=== PATIENT | male | born 1970 | race Caucasian/White ===

== ENCOUNTER 2021-11-26 12:06 | Day surgery (SDC) | payer OTHER, SELFPAY ==
[2021-09-19 09:16] VITALS: BMI 25.4
[2021-11-12 14:18] VITALS: BMI 24.5
[2021-11-26 12:25] VITALS: BP 110/79; PULSE 60; RESP 20; TEMP 36.8; O2SAT 100
[2021-11-26] MEDS: LACTATED RINGERS 1,000 ML 150 ML IV CONT (13:28)
--- NOTE | 2021-11-26 14:19 | P.PNAN_ITS ---
Anes - Initial Pre Proc Eval Procedure: Operation Date: 11/26/21 13:30 Proposed Procedures p Screening Colonoscopy - Guerrero Jesus MD Date/Time: 11/26/21 14:19 Surgeon: Guerrero Jesus MD Pre Op Diagnosis: Neoplasm Screening Patient Data Age: 51 Gender: M Height: 1.83 m Weight: 77.4 kg Last Vital Signs Temp 36.8 C 11/26/21 12:25 Pulse 60 11/26/21 12:25 Resp 20 11/26/21 12:25 BP 110/79 11/26/21 12:25 Pulse Ox 100 11/26/21 12:25 O2 Del Method Room Air 11/26/21 12:25 Allergies Allergy/AdvReac Type Severity Reaction Status Date / Time No Known Allergies Allergy Verified 11/26/21 12:28 Home Medications Medication Instructions Recorded Confirmed Type loratadine 10 mg tablet (Allergy 10 mg PO DAILY 08/05/21 11/26/21 History Relief (loratadine)) pseudoephedrine HCl 30 mg tablet 30 mg PO Q4-6H PRN allergies 08/05/21 11/26/21 History (Sudafed) sodium,potassium,mag sulfates 17.5 See Rx Instructions PO .COMPLEX 09/19/21 11/26/21 Rx gram-3.13 gram-1.6 gram oral soln #354 mL (Suprep Bowel Prep Kit) Patient hx anesthesia problems: none Family hx anesthesia problems: none Results Review: All pre-operative results and documents have been reviewed as part of the pre- operative evaluation. [facility], [facility] Past Medical History Medical History (Updated 11/26/21 @ 14:19 by Chase Velasquez MD) Basal cell carcinoma Surgical History Surgical History (Updated 11/26/21 @ 14:19 by Chase Velasquez MD) H/O basal cell carcinoma excision Family History Family History Father Parkinson disease Social History Social History Smoking status: Never smoker Second hand tobacco smoke exposure: No Alcohol intake: never Substance use: never Substance use type: does not use Living arrangements: with family Gender identity (if verbalized by the patient): Male Sexual Orientation (if Verbalized by the Patient): Straight or Heterosexual Spiritual care concerns: No Anes - Eval Final PreProcedure Day of Procedure 11/26/21 14:19 Patient weight: normal Heart: regular rate and rhythm Lungs: clear to auscultation Airway: Mallampati scale class II Neurological: alert and oriented Last oral intake: >/= 8 hours ASA classification: I Emergent: no Anesthetic plan: proceed Anesthesia type and monitoring: general GIVS and standard monitoring Results Review: All pre-operative results and documents have been reviewed as part of the pre- operative evaluation. Informed Consent: The patient's anesthetic plan and its attendant risks and benefits were discussed with the patient/family/POA. Questions were solicited and answers provided to the satisfaction of the patient/family/POA.
--- NOTE | 2021-11-26 14:32 | PM.HPGS ---
History of Present Illness History of Present Illness Consent: Risks, benefits, and alternatives have been discussed and questions answered. Patient agrees to proceed with procedure. Chief complaint: Neoplasm Screening Narrative: Quincy Shell is a 51 year old male Presents for screening colonoscopy. Patient's current weight appetite and bowel movements are normal. Patient denies abdominal pain. He has had no bleeding. Family history is noncontributory. Patient presents today for screening colonoscopy. Review of Systems Review of Systems: Review of systems noncontributory. [facility] Past Medical History Medical History (Updated 11/26/21 @ 14:34 by Guerrero Jesus MD) Basal cell carcinoma Surgical History Surgical History (Updated 11/26/21 @ 14:19 by Chase Velasquez MD) H/O basal cell carcinoma excision Family History Family History Father Parkinson disease Social History Social History Smoking status: Never smoker Second hand tobacco smoke exposure: No Alcohol intake: never Substance use: never Substance use type: does not use Living arrangements: with family Gender identity (if verbalized by the patient): Male Sexual Orientation (if Verbalized by the Patient): Straight or Heterosexual Spiritual care concerns: No Meds Home Medications and Allergies Home Medications Medication Instructions Recorded Confirmed Type loratadine 10 mg tablet (Allergy 10 mg PO DAILY 08/05/21 11/26/21 History Relief (loratadine)) pseudoephedrine HCl 30 mg tablet 30 mg PO Q4-6H PRN allergies 08/05/21 11/26/21 History (Sudafed) sodium,potassium,mag sulfates 17.5 See Rx Instructions PO .COMPLEX 09/19/21 11/26/21 Rx gram-3.13 gram-1.6 gram oral soln #354 mL (Suprep Bowel Prep Kit) Allergies Allergy/AdvReac Type Severity Reaction Status Date / Time No Known Allergies Allergy Verified 11/26/21 12:28 Vital Signs Vital Signs - 24 hr 11/26/21 12:25 Temperature 98.2 F Pulse Rate 60 Respiratory Rate 20 Blood Pressure 110/79 Pulse Oximetry 100 Oxygen Delivery Room Air Exam Narrative: Physical exam reveals patient to be alert. Vital signs stable. HEENT exam is unremarkable. Patient is anicteric. Lungs are clear to auscultation and percussion. Heart is without murmur or extra sounds. Abdominal exam bowel sounds are present soft nontender with no hepatosplenomegaly. Did in digital external rectal exam is normal Assessment and Plan Assessment and plan (1) Encounter for screening colonoscopy: Code(s): Z12.11 - Encounter for screening for malignant neoplasm of colon Status: Acute Assessment and Plan: patient presents for screening colonoscopy. Appears to be at average risk for colon polyps. Further recommendations will be given after endoscopy.
[2021-11-26 15:05] VITALS: BP 106/75; PULSE 66; RESP 14; O2SAT 100
[2021-11-26 15:16] VITALS: BP 111/73; PULSE 65; RESP 15; O2SAT 100
--- NOTE | 2021-11-26 15:16 | WPDANESPN ---
Anes - Prog Note Post-Op Date/Time: 11/26/21 15:16 Cardiovascular status: normal Respiratory status: normal Airway patency: baseline Mental status: baseline Vital Signs: Last Vital Signs Temp 36.8 C 11/26/21 12:25 Pulse 66 11/26/21 15:05 Resp 14 11/26/21 15:05 BP 106/75 11/26/21 15:05 Pulse Ox 100 11/26/21 15:05 O2 Del Method Room Air 11/26/21 15:05 Pain Score (VAS): 0/10 I/O: Intake & Output 11/25/21 11/26/21 11/26/21 23:59 07:59 15:59 Intake Total 400 Balance 400 Patient Feedback: Patient satisfied with anesthetic care.
[2021-11-26 15:24] VITALS: BP 129/80; PULSE 58; RESP 14; O2SAT 100
== END 2021-11-26 15:36 | disposition home or self-care (01) ==
PROVIDERS: PCP Family Medicine; Visit Provider Internal Medicine Gastroenterology
PROC: 0DJD8ZZ Inspection of Lower Intestinal Tract, Via Natural or Artificial Opening Endoscopic (ICD-10-PCS; CPT 45378; principal; 2021-11-26 13:30)
DX: Z12.11 Encounter for screening for malignant neoplasm of colon (principal)
CPT/HCPCS: 45378